=== PATIENT | female | born 1985 | race Caucasian/White ===

== ENCOUNTER 2021-01-15 21:15 | Emergency (ER) | payer SELFPAY ==
[2021-01-15] MEDS ORDERED: Sodium Chloride 0.9% 10 ML Syringe FLUSH PRN (21:18)
--- NOTE | 2021-01-15 21:30 | EDM.PDOC ---
ED HPI GENERAL MEDICAL PROBLEM - General Chief Complaint: Respiratory Problem Stated Complaint: [facility] Time Seen by Provider: 01/15/21 21:18 Source of Information: Reports: Patient, EMS, RN Notes Reviewed History Limitations: Reports: No Limitations - History of Present Illness INITIAL COMMENTS - FREE TEXT/NARRATIVE: Patient is a 35-year-old female who presents to the ER by [place] [facility] service for the evaluation of her shortness of breath. Patient states that she recently moved up from [place] to live with her brother. States that for the last 3 days, she has been having issues with her breathing. She is having some fevers and chills, cough that is not productive, some worsening shortness of breath. States she has a history of asthma and COPD. Has subsequently run out of her albuterol. She was given 1 albuterol nebulizer in the ambulance however she was observed to be turning her head away from the nebulizer so I am not sure how much she actually got. Breath sounds are not wheezy at this time. Patient's O2 sats are 93% on room air. Chest Pain Score (Numeric/FACES): 10 - Related Data Allergies Allergy/AdvReac Type Severity Reaction Status Date / Time Penicillins Allergy Hives Verified 01/15/21 21:22 Home Meds: Home Meds Albuterol [Proventil Neb Soln] 2.5 mg NEB QIDRT PRN #1 box 01/15/21 [Rx] Past Medical History Respiratory History: Reports: Asthma, COPD Gastrointestinal History: Reports: Other (See Below) Other Gastrointestinal History: fatty liver Immunologic History: Reports: AIDS - Infectious Disease History Infectious Disease History: Reports: None Social & Family History - Tobacco Use Tobacco Use Status *Q: Current Every Day Tobacco User Years of Tobacco use: 20 Packs/Tins Daily: 1.5 - Caffeine Use Caffeine Use: Reports: Coffee, Energy Drinks, Soda, Tea - Recreational Drug Use Recreational Drug Use: No ED ROS GENERAL - Review of Systems Review Of Systems: Comprehensive ROS is negative, except as noted in HPI. ED EXAM, GENERAL - Physical Exam Exam: See Below Exam Limited By: No Limitations General Appearance: Alert, WD/WN, No Apparent Distress Respiratory/Chest: No Respiratory Distress, Lungs Clear, Normal Breath Sounds, No Accessory Muscle Use, Chest Non-Tender Cardiovascular: Normal Peripheral Pulses, Regular Rate, Rhythm, No Edema Extremities: Normal Inspection, Normal Capillary Refill Neurological: Alert, Oriented, Normal Cognition, No Motor/Sensory Deficits Psychiatric: Normal Affect, Normal Mood Skin Exam: Warm, Dry, Intact, Normal Color, No Rash Course - Vital Signs Last Recorded V/S: Last Vital Signs Temp 97.4 F 01/15/21 21:19 Pulse 114 H 01/15/21 21:19 Resp 22 H 01/15/21 21:19 BP 104/92 H 01/15/21 21:19 Pulse Ox 94 L 01/15/21 21:19 - Orders/Labs/Meds Orders: Active Orders 24 hr Category Date Time Status Peripheral IV Care [RC] . DIRECTED Care 01/15/21 21:19 Active Chest 1V Frontal [CR] Stat Exams 01/15/21 21:18 Taken RESPIRATORY SYNCYTIAL VIRUS AG [RM] Stat Lab 01/15/21 22:18 Ordered Sodium Chloride 0.9% [Saline Flush] Med 01/15/21 21:18 Active 10 ml FLUSH ASDIRECTED PRN Isolation [COMM] Routine Oth 01/15/21 22:18 Ordered Peripheral IV Insertion Adult [OM.PC] Routine Oth 01/15/21 21:18 Ordered Medication Orders Sodium Chloride (Sodium Chloride 0.9% 10 Ml Syringe) 10 ml FLUSH ASDIRECTED PRN PRN Reason: Keep Vein Open Labs: Laboratory Tests 01/15/21 01/15/21 01/15/21 Range/Units 21:25 21:40 21:40 WBC 5.81 (3.98-10.04) K/mm3 RBC 3.70 L (3.98-5.22) M/mm3 Hgb 11.5 (11.2-15.7) gm/dl Hct 35.4 (34.1-44.9) % MCV 95.7 H (79.4-94.8) fl MCH 31.1 (25.6-32.2) pg MCHC 32.5 (32.2-35.5) g/dl RDW Std Deviation 48.1 H (36.4-46.3) fL Plt Count 227 (182-369) K/mm3 MPV 11.1 (9.4-12.3) fl Neut % (Auto) 73.6 H (34.0-71.1) % Lymph % (Auto) 13.4 L (19.3-51.7) % [place] % (Auto) 4.6 L (4.7-12.5) % Eos % (Auto) 7.4 H (0.7-5.8) Baso % (Auto) 0.7 (0.1-1.2) % Neut # (Auto) 4.27 (1.56-6.13) K/mm3 Lymph # (Auto) 0.78 L (1.18-3.74) K/mm3 [place] # (Auto) 0.27 (0.24-0.36) K/mm3 Eos # (Auto) 0.43 H (0.04-0.36) K/mm3 Baso # (Auto) 0.04 (0.01-0.08) K/mm3 Sodium 139 (136-145) mEq/L Potassium 4.5 (3.5-5.1) mEq/L Chloride 104 (98-107) mEq/L Carbon Dioxide 27 (21-32) mEq/L Anion Gap 12.5 (5-15) BUN 14 (7-18) mg/dL Creatinine 1.2 H (0.55-1.02) mg/dL Est Cr Clr Drug Dosing 57.76 mL/min Estimated GFR (MDRD) 51 (>60) mL/min BUN/Creatinine Ratio 11.7 L (14-18) Glucose 92 (70-99) mg/dL Calcium 8.2 L (8.5-10.1) mg/dL Total Bilirubin 0.4 (0.2-1.0) mg/dL AST 181 H (15-37) U/L ALT 85 H (14-59) U/L Alkaline Phosphatase 812 H (46-116) U/L C-Reactive Protein 2.3 H* (<1.0) mg/dL Total Protein 7.4 (6.4-8.2) g/dl Albumin 2.5 L (3.4-5.0) g/dl Globulin 4.9 gm/dL Albumin/Globulin Ratio 0.5 L (1-2) Influenza Type A RNA Negative (NEGATIVE) Influenza Type B RNA Negative (NEGATIVE) SARS-CoV-2 RNA (TRISTIAN) Negative (NEGATIVE) Meds: Medications Generic Name Dose Route Start Last Admin Trade Name Freq PRN Reason Stop Dose Admin Sodium Chloride 10 ml 01/15/21 21:18 Sodium Chloride 0.9% 10 Ml Syringe FLUSH ASDIRECTED PRN Keep Vein Open Discontinued Medications Generic Name Dose Route Start Last Admin Trade Name Madelin PRN Reason Stop Dose Admin Prednisone 40 mg 01/15/21 22:15 Prednisone 20 Mg Tab PO 01/15/21 22:16 ONETIME ONE - Re-Assessments/Exams Free Text/Narrative Re-Assessment/Exam: 01/15/21 21:29 Patient presents to the ER for evaluation of her shortness of breath. She will be swabbed for COVID-19, will get some basic labs at this time. 01/15/21 22:19 Patient's labs have resulted, CBC is unremarkable, CMP demonstrates abnormalities with liver enzymes, but her past medical history is positive for AIDS. Lab did call and state that they ran a Covid/flu/RSV cassette, and that her Covid/flu came back negative however her RSV did come back positive. So I did order an RSV test so they can result this test. Of since she has a history of COPD and asthma, we will go ahead and treat her more for like an asthma exacerbation, get her some more albuterol nebulizers, get her on some steroids to see if this helps relieve some of her issues and have her follow-up with primary care in the few days. Departure - Departure Time of Disposition: 22:33 Disposition: Home, Self-Care 01 Condition: Good Clinical Impression: RSV bronchitis, Asthma exacerbation with COPD (chronic obstructive pulmonary disease) - Discharge Information *PRESCRIPTION DRUG MONITORING PROGRAM REVIEWED*: No *COPY OF PRESCRIPTION DRUG MONITORING REPORT IN PATIENT JESSICA: No Instructions: Viral Respiratory Infection, [id number] Forms: ED Department Discharge Additional Instructions: You have been evaluated in the ED today for your shortness of breath. Your Covid screen/influenza screen at [facility] visit was negative, but your RSV screen was positive. I do also believe you are suffering from an acute asthma exacerbation. Chest x-ray showed some hyperinflation of your lungs, but no obvious sign of any sort of pneumonia type process. Laboratory evaluation also was within normal limits. Please increase your fluid intake. Get plenty of rest as well. You should feel better in a few days. As with any illness, please try to limit your exposure to others to help mitigate the spread of germs. Please also remember to wash your hands after you cough/sneeze. Please try to limit touching your face, and then touching other surfaces. You were given a few different medications from this ER, 1 will be an albuterol inhaler, you will need to use 1 to 2 puffs every 4 hours as needed for ongoing shortness of breath management. The other medication is for prednisone, and oral steroid you should take 1 tablet 2 times a day for the first 5 days, and then 1 tablet daily for the last 5 days. Please note since this medication was given from this ER, you will have an extra 5 tablets left over, you may discard these at your leisure. If you do not have a primary care provider already, I recommend that you follow- up with a provider in our clinic, any family practice provider would be able to provide you with the services. Our clinic telephone number [phone], please call in the morning to obtain an appointment with the provider, for follow-up of your symptoms that prompted your ER visit today. Please return to the ED if your symptoms change or worsen. Sepsis Event Note (ED) - Evaluation Sepsis Screening Result: No Definite Risk - Focused Exam Vital Signs: Vital Signs Temp Pulse Resp BP Pulse Ox 01/15/21 21:19 97.4 F 114 H 22 H 104/92 H 94 L - My Orders Last 24 Hours: My Active Orders 01/15/21 21:18 Chest 1V Frontal [CR] Stat Sodium Chloride 0.9% [Saline Flush] 10 ml FLUSH ASDIRECTED PRN Peripheral IV Insertion Adult [OM.PC] Routine 01/15/21 21:19 Peripheral IV Care [RC] . DIRECTED 01/15/21 22:18 RESPIRATORY SYNCYTIAL VIRUS AG [RM] Stat Isolation [COMM] Routine - Assessment/Plan Last 24 Hours: My Active Orders 01/15/21 21:18 Chest 1V Frontal [CR] Stat Sodium Chloride 0.9% [Saline Flush] 10 ml FLUSH ASDIRECTED PRN Peripheral IV Insertion Adult [OM.PC] Routine 01/15/21 21:19 Peripheral IV Care [RC] . DIRECTED 01/15/21 22:18 RESPIRATORY SYNCYTIAL VIRUS AG [RM] Stat Isolation [COMM] Routine
[2021-01-15 22:10] LABS: CORONAVIRUS COVID-19 NAA NEGATIVE (NEGATIVE)
[2021-01-15] MEDS ORDERED: predniSONE 20 MG Tab PO ONE (22:15)
[2021-01-15] MEDS ORDERED: Albuterol 6.7 GM Inhaler INH ONE (22:23)
--- NOTE | 2021-01-16 07:45 | CR ---
Chest: Frontal view of the chest was obtained. Comparison: No prior chest imaging is available. Heart size and mediastinum are normal. Slight linear density is seen within the right upper lung most likely representing small area of scarring. Lungs otherwise are clear. Bony structures show nothing acute. Impression: 1. Nothing acute is seen on frontal chest x-ray. Diagnostic code #2
== END 2021-01-15 22:45 | disposition home or self-care (01) ==
LOC: JD.ED 21:15
DX: J44.1 Chronic obstructive pulmonary disease with (acute) exacerbation (principal); B97.4 Respiratory syncytial virus as the cause of diseases classified elsewhere; Z72.0 Tobacco use; Z88.0 Allergy status to penicillin; Z20.822 Contact with and (suspected) exposure to COVID-19
CPT/HCPCS: 0241U; 36415; 71045; 80053; 85025; 86140; 99285; A9270; J7512

== ENCOUNTER 2022-02-27 23:54 | Emergency (ER) | payer MEDICAID ==
[2022-02-28] MEDS ORDERED: Ibuprofen 600 MG Tab PO ONE (01:12)
[2022-02-28 02:00] LABS: CORONAVIRUS COVID-19 NAA NEGATIVE (NEGATIVE)
== END 2022-02-28 02:38 | disposition left against medical advice (07) ==
LOC: JD.ED 23:54
DX: J10.1 Influenza due to other identified influenza virus with other respiratory manifestations (principal); E87.6 Hypokalemia; R73.9 Hyperglycemia, unspecified; F17.210 Nicotine dependence, cigarettes, uncomplicated; E66.9 Obesity, unspecified; Z68.42 Body mass index [BMI] 45.0-49.9, adult; Z88.0 Allergy status to penicillin; Z79.899 Other long term (current) drug therapy; Z90.49 Acquired absence of other specified parts of digestive tract; Z20.822 Contact with and (suspected) exposure to COVID-19
CPT/HCPCS: 0241U; 36415; 71046; 80053; 83880; 85007; 85027; 85379; 85610; 85730; 86140; 87040; 99283; A9270

== ENCOUNTER 2022-02-28 08:59 | Emergency (ER) | payer MEDICAID ==
[2022-02-28] MEDS ORDERED: methylPREDNISolone Sodium Succinate 125 MG/2 ML SDV IVPUSH ONE (09:51)
[2022-02-28] MEDS ORDERED: Albuterol/Ipratropium 3.0-0.5 MG/3 ML Neb Soln NEB ONE (09:51)
[2022-02-28 10:38] LABS: ESTIMATED GFR 74 mL/min (>60)
[2022-02-28] MEDS ORDERED: Potassium Chloride 20 MEQ Tab.ER PO ONE (12:33)
== END 2022-02-28 15:46 | disposition home or self-care (01) ==
LOC: JD.ED 08:59
DX: S06.5X9A Traumatic subdural hemorrhage with loss of consciousness of unspecified duration, initial encounter (principal); J44.1 Chronic obstructive pulmonary disease with (acute) exacerbation; Z88.0 Allergy status to penicillin; W01.198A Fall on same level from slipping, tripping and stumbling with subsequent striking against other object, initial encounter
CPT/HCPCS: 36415; 70450; 71045; 80053; 84484; 85025; 94640; 96374; 99285; A9270; J2930; J7620-GY

== ENCOUNTER 2022-03-11 22:30 | Emergency (ER) | payer MEDICAID ==
[2022-03-11] MEDS ORDERED: Sodium Chloride 0.9% 10 ML Syringe FLUSH PRN (22:56)
[2022-03-11] MEDS ORDERED: Ondansetron 4 MG/2 ML SDV IVPUSH ONE (22:56)
[2022-03-11] MEDS ORDERED: Sodium Chloride 0.9% 1,000 ML IV SCH (23:00)
[2022-03-11] MEDS ORDERED: Albuterol/Ipratropium 3.0-0.5 MG/3 ML Neb Soln NEB ONE (23:08)
[2022-03-11] MEDS ORDERED: Sodium Chloride 0.9% 1,000 ML ONE (23:15)
[2022-03-11 23:47] LABS: ESTIMATED GFR 74 mL/min (>60)
[2022-03-12 00:03] LABS: CORONAVIRUS COVID-19 NAA NEGATIVE (NEGATIVE)
== END 2022-03-12 00:43 | disposition home or self-care (01) ==
LOC: JD.ED 22:30
DX: S06.0X1A Concussion with loss of consciousness of 30 minutes or less, initial encounter (principal); J10.1 Influenza due to other identified influenza virus with other respiratory manifestations; J44.9 Chronic obstructive pulmonary disease, unspecified; Z88.0 Allergy status to penicillin; Z79.899 Other long term (current) drug therapy; Z20.822 Contact with and (suspected) exposure to COVID-19; W18.30XA Fall on same level, unspecified, initial encounter
CPT/HCPCS: 0241U; 36415; 70450; 71045; 80053; 80307; 85025; 86140; 94640; 96361; 96374; 99284; J2405; J7030; J7620-GY